=== PATIENT | female | born 1990 | race African-American/Black ===

== ENCOUNTER 2021-09-12 18:52 | Emergency (ER) | payer OTHER ==
[2021-09-12 19:03] VITALS: BP 134/76; PULSE 92; TEMP 98; BMI 35.3
== END 2021-09-12 19:59 | disposition home or self-care (01) ==
LOC: JERFT 18:52
DX: S80.11XA Contusion of right lower leg, initial encounter (principal); S80.12XA Contusion of left lower leg, initial encounter; W17.1XXA Fall into storm drain or manhole, initial encounter
CPT/HCPCS: 99281-25